=== PATIENT | female | born 1940 | race African-American/Black ===

== ENCOUNTER 2019-07-13 01:17 | Inpatient (IN) | payer MEDICARE, MEDICAID ==
[~2019-07-13] VITALS: Ht 157.5 cm; Wt 77.1 kg
[2019-07-13] VITALS (11 sets, daily range): BP systolic 100–150; BP diastolic 44–70
[2019-07-13] MEDS ORDERED: heparin 10,000 units/1 ML INJ IV ONE (01:35)
[2019-07-13] MEDS ORDERED: heparin 10,000 units/1 ML INJ IV PRN (01:35)
[2019-07-13] MEDS ORDERED: FURO-150 PO (01:50)
[2019-07-13] MEDS ORDERED: LISI-604 PO (01:50)
[2019-07-13] MEDS ORDERED: CLOP75TA35 PO (01:50)
[2019-07-13] MEDS ORDERED: ASPI-1265 PO (01:50)
[2019-07-13] MEDS ORDERED: GLIP10TA11 PO (01:50)
[2019-07-13] MEDS ORDERED: FAMO20TA8 PO (01:50)
[2019-07-13] MEDS ORDERED: GABA-532 PO (01:58)
[2019-07-13] MEDS ORDERED: METF500T PO (01:58)
[2019-07-13] MEDS ORDERED: POTA10TA19 PO (01:58)
[2019-07-13] MEDS ORDERED: ATOR10TA87 PO (01:58)
[2019-07-13] MEDS ORDERED: METO-384 PO (01:58)
[2019-07-13] MEDS: heparin 25,000 UNIT/250ml bag 250 ML IV SCH ×2 (02:04→08:50)
[2019-07-13] MEDS ORDERED: acetaminophen 325mg tablet PO PRN ×2 (02:20→14:00)
[2019-07-13] MEDS ORDERED: mag hydrox/Alum hydrox/simeth 30ml oral suspension PO PRN (02:20)
[2019-07-13] MEDS ORDERED: potassium Cl 20 mEq SR tablet PO PRN ×2 (02:20)
[2019-07-13] MEDS ORDERED: magnesium Cl slow-release 64mg tablet PO PRN (02:20)
[2019-07-13] MEDS ORDERED: magnesium 2GM in 50ml NS 50 ML IV PRN (02:20)
[2019-07-13] MEDS ORDERED: potassium CL 10mEq/100ml bag 100 ML IV PRN ×2 (02:20)
[2019-07-13] MEDS ORDERED: magnesium 4gm in 100ml NS 100 ML IV PRN (02:20)
[2019-07-13] MEDS ORDERED: ondansetron/PF 4mg/2ml inj IV PRN (02:20)
[2019-07-13] MEDS ORDERED: magnesium hydroxide 30ml (MOM) UD suspension PO PRN ×2 (02:20→14:00)
[2019-07-13] MEDS ORDERED: glucagon, human recombinant 1mg kit SUBCUT PRN (02:25)
[2019-07-13] MEDS ORDERED: famotidine 20mg tablet PO PRN (02:25)
[2019-07-13] MEDS ORDERED: dextrose 50%-water 50ml dispensing syringe IV PRN ×2 (02:25)
[2019-07-13] MEDS ORDERED: MESSAGE TO PHARMACY PO ONE (02:25)
[2019-07-13] MEDS ORDERED: dextrose ORAL solution 15 GM/59 ML bottle PO PRN ×2 (02:25)
[2019-07-13] MEDS: normal saline 1000ml 1,000 ML IV SCH ×2 (02:28→07:48)
[2019-07-13 02:31] LABS: BASOPHILS # (AUTO) 0.1 X10'3 (0-0.2); BASOPHILS % (AUTO) 1.1 % (0-1); EOSINOPHILS # (AUTO) 0.2 X10'3 (0-0.9); HEMATOCRIT 37.1 % (35.0-45.0); HEMOGLOBIN 12.2 g/dl (12.0-16.0); LYMPHOCYTES # (AUTO) 2.6 X10'3 (1.1-4.8); LYMPHOCYTES % (AUTO) 40.4 % (21-51); MEAN CORPUSCULAR HEMOGLOBIN 27.6 PG (27.0-31.0); MEAN CORPUSCULAR VOLUME 83.5 FL (78-98); MEAN PLATELET VOLUME 9.4 FL (7.4-10.4); MONOCYTES # (AUTO) 0.5 X10'3 (0-0.9); MONOCYTES % (AUTO) 8.2 % (2-12); NEUTROPHILS % (AUTO) 47.3 % (42-75); PLATELET COUNT 198 X10'3 (140-440); RED BLOOD COUNT 4.44 X10'6 (4.20-5.60); WHITE BLOOD COUNT 6.4 X10'3 (4.5-11.0)
[2019-07-13 02:47] LABS: ALANINE AMINOTRANSFERASE 24 U/L (12-78); ALBUMIN/GLOBULIN RATIO 1.1 (1.1-1.5); ALKALINE PHOSPHATASE 52 IU/L (46-116); ANION GAP 7 (8-16); ASPARTATE AMINO TRANSFERASE 24 U/L (10-37); BILIRUBIN,TOTAL 0.3 MG/DL (0.1-1.0); BLOOD UREA NITROGEN 14 MG/DL (7-18); BUN/CREATININE RATIO 17.9 (6.6-38.0); CALCIUM 9.8 MG/DL (8.5-10.1); CHLORIDE 105 MMOL/L (99-107); CREATININE 0.78 MG/DL (0.40-0.90); GLUCOSE 211 MG/DL (70-104); POTASSIUM 3.9 MMOL/L (3.5-5.1); SODIUM 139 MMOL/L (135-145); TOTAL CARBON DIOXIDE 26.9 MMOL/L (24-32); TOTAL PROTEIN 7.5 G/DL (6.4-8.2); eGFR 71 ML/MIN
[2019-07-13 02:57] LABS: PARTIAL THROMBOPLASTIN TIME 126 SECONDS (22-32)
--- NOTE | 2019-07-13 05:54 | NUR ---
DART: MRSA 2-RN- Skin
--- NOTE | 2019-07-13 06:29 | NUR ---
Problems reprioritized. Patient report given, questions answered & plan of care reviewed with SHAUNA Camara. Patient stable at shift change
[2019-07-13] MEDS: K and/or MAG REPLACEMENT MC SCH ×2 (08:00→18:41)
[2019-07-13] MEDS: aspirin 81mg tab.chew PO SCH ×2 (08:00→09:48)
[2019-07-13] MEDS ORDERED: lisinopril 5mg tablet PO SCH (08:00)
[2019-07-13] MEDS: atorvastatin 10mg tablet PO SCH ×2 (08:00→09:46)
[2019-07-13] MEDS: potassium chloride 10mEq ER tablet PO SCH ×2 (08:00→09:48)
[2019-07-13] MEDS: clopidogrel 75mg tablet PO SCH ×2 (08:00→09:46)
[2019-07-13] MEDS: metoprolol succinate 25mg (24-HOUR) SR. Tablet PO SCH (08:00)
[2019-07-13] MEDS: insulin Lispro (HumaLOG) vial - multi-dose SQ SCH ×3 (08:06→19:12)
--- NOTE | 2019-07-13 08:13 | NUR ---
Patient refused portion of am meds due to NPO
[2019-07-13 08:32] LABS: MAGNESIUM 1.7 MG/DL (1.5-2.4)
--- NOTE | 2019-07-13 09:50 | NUR ---
able to give aspirin and plavix per BATTERY TEST ENGINEER. K and lipitor given now that pt can have food.
[2019-07-13 09:56] LABS: CHOL/HDL RATIO 2.8 (0.00-4.99); CHOLESTEROL 123 MG/DL (0-200); HDL CHOLESTEROL 44 MG/DL (35-60); LDL CHOLESTEROL 60 MG/DL (50-100); TRIGLYCERIDES 111 MG/DL (20-135)
[2019-07-13] MEDS ORDERED: LIDOcaine/PRILOcaine 5gm cream TP ONE (10:15)
[2019-07-13] MEDS ORDERED: verapamil 2.5 mg/ml inj IV ONE (10:29)
[2019-07-13] MEDS ORDERED: fentaNYL/PF 50MCG/1 ML 2ML syringe ONE (10:29)
[2019-07-13] MEDS ORDERED: iohexol 350 MG/ML 50ML vial IV ONE (10:29)
[2019-07-13] MEDS ORDERED: nitroGLYCERIN-Tridil 50MG/D5W 250 ML IV ONE (10:29)
[2019-07-13] MEDS ORDERED: LIDOcaine 1% (10mg/ml)w/preservative injection 20ml MDV ONE (10:29)
[2019-07-13] MEDS ORDERED: iohexol 350MG/ML 100ml bottle IV ONE ×3 (10:29→12:14)
[2019-07-13] MEDS ORDERED: midazolam 2 mg/2 ml injection ONE (10:29)
[2019-07-13] MEDS ORDERED: heparin 1,000unit/ml 10ml vial 10 ML ONE (10:29)
[2019-07-13] MEDS ORDERED: atropine 0.1mg/ml 10ml syringe ONE (11:58)
[2019-07-13] MEDS ORDERED: clopidogrel 300mg tablet ONE (12:35)
--- NOTE | 2019-07-13 12:39 | NUR ---
Received report from SHAUNA Diane in labor conciliator. Patient had right radial approach cardiac cath. Patient has a VascBand in place with 15 cc of air. Patient continues to have Heparin running at 1000 units and will be d/c. Patient received 1 of Versed and 25 of Fentanyl. Patient will also receive Plavix 300 mg by semiconductor lab technician staff prior to coming back to the ACCE unit. Stent placed to the Mid Circumflex.
--- NOTE | 2019-07-13 12:55 | NUR ---
Patient arrived back from the mini lab operator. Patient is alert and oriented and in a stable condition. Noted the Vascular band to the right wrist, no drainage. Vitals stable . Will continue to monitor for duration of shift.
[2019-07-13] MEDS ORDERED: aspirin 81mg tab.chew PO ONE (13:55)
[2019-07-13] MEDS ORDERED: normal saline 1000ml 1,000 ML IV SCH (13:55)
[2019-07-13] MEDS ORDERED: proCHLORperazine 10 MG/2 ml inj IV PRN (14:00)
[2019-07-13] MEDS ORDERED: cyclobenzaprine 10mg tablet PO PRN (14:00)
[2019-07-13] MEDS ORDERED: OXAZEpam 15mg capsule PO PRN (14:00)
[2019-07-13] MEDS ORDERED: aspirin 325mg tablet PO ONE (14:00)
[2019-07-13] MEDS ORDERED: HYDROcodone/acetaminophen 10/325mg tab PO PRN ×2 (14:00)
--- NOTE | 2019-07-13 14:38 | NUR ---
DM Consult: A1C 10.9 Pt hx T2DM taking metformin and glipizide at home; may require insulin for better coverage per MD note. Pt admit w/ NSTEMI currently NPO for coronary angiogram today. Hx CAD and hyperlipidemia; lipid panel WNL this admit. Pt would benefit from written/verbal DM ed w/ RD contact information once stable prior to d/c. Addendum: 07/13/19 at [address] Amended: Links added.
--- NOTE | 2019-07-13 17:00 | NUR ---
Student documentation: I have reviewed and agree with interventions, assessments performed and documented by SONIA Diamond. Student Medication Administration: For this medication-pass time frame, medication were reviewed, dispensed, administered and documented per hospital policy by Etelvina Gunn RN.
--- NOTE | 2019-07-13 18:16 | NUR ---
Problems reprioritized. Patient report given, questions answered & plan of care reviewed with SHAUNA Song.
--- NOTE | 2019-07-13 18:44 | NUR ---
Patient in room MED 309. I have received report from Hoa VILLATORO and had the opportunity to ask questions and assume patient care.
[2019-07-13] MEDS: docusate sod 100mg capsule PO SCH (19:13)
[2019-07-13] MEDS ORDERED: furosemide 20MG tablet PO SCH (21:00)
[2019-07-13] MEDS ORDERED: atorvastatin 20mg tablet PO SCH (21:00)
[2019-07-13] MEDS ORDERED: gabapentin 300mg capsule PO SCH (21:00)
[2019-07-13] MEDS ORDERED: insulin glargine (Lantus) pen - multi-dose SQ SCH (21:00)
--- NOTE | 2019-07-13 21:55 | NUR ---
Attempted to call [facility] medical records for the patients PCI report, from her heart cath 2 years ago. The office is currently closed but is open Saturday-Saturday 8am-5pm. Medical record office numbe is [phone].
[2019-07-14 03:59] LABS: ALANINE AMINOTRANSFERASE 21 U/L (12-78); ALBUMIN 3.6 G/DL (3.4-5.0); ALBUMIN/GLOBULIN RATIO 1.1 (1.1-1.5); ALKALINE PHOSPHATASE 49 IU/L (46-116); ANION GAP 6 (8-16); ASPARTATE AMINO TRANSFERASE 20 U/L (10-37); BILIRUBIN,TOTAL 0.2 MG/DL (0.1-1.0); BLOOD UREA NITROGEN 16 MG/DL (7-18); BUN/CREATININE RATIO 16.7 (6.6-38.0); CALCIUM 9.3 MG/DL (8.5-10.1); CHLORIDE 107 MMOL/L (99-107); CREATININE 0.96 MG/DL (0.40-0.90); GLUCOSE 85 MG/DL (70-104); POTASSIUM 3.6 MMOL/L (3.5-5.1); SODIUM 142 MMOL/L (135-145); TOTAL CARBON DIOXIDE 28.7 MMOL/L (24-32); eGFR 68 ML/MIN
[2019-07-14 06:00] VITALS: BP 138/62
--- NOTE | 2019-07-14 06:28 | NUR ---
Problems reprioritized. Patient report given, questions answered & plan of care reviewed with Yamila VILLATORO.
--- NOTE | 2019-07-14 06:29 | NUR ---
Patient in room MED 309. I have received report from Duncan VILLATORO and had the opportunity to ask questions and assume patient care.
[2019-07-14 06:30] LABS: BASOPHILS # (AUTO) 0.1 X10'3 (0-0.2); EOSINOPHILS # (AUTO) 0.2 X10'3 (0-0.9); EOSINOPHILS % (AUTO) 2.6 % (0-6); HEMATOCRIT 37.8 % (35.0-45.0); HEMOGLOBIN 12.3 g/dl (12.0-16.0); LYMPHOCYTES # (AUTO) 1.4 X10'3 (1.1-4.8); LYMPHOCYTES % (AUTO) 21.7 % (21-51); MEAN CORPUSCULAR HEMOGLOBIN 27.8 PG (27.0-31.0); MEAN CORPUSCULAR HGB CONC 32.7 g/dL (33.0-36.5); MEAN PLATELET VOLUME 8.8 FL (7.4-10.4); MONOCYTES # (AUTO) 0.5 X10'3 (0-0.9); MONOCYTES % (AUTO) 7.3 % (2-12); NEUTROPHILS # (AUTO) 4.3 X10'3 (1.8-7.7); NEUTROPHILS % (AUTO) 67.4 % (42-75); PLATELET COUNT 200 X10'3 (140-440); RED BLOOD COUNT 4.44 X10'6 (4.20-5.60); RED CELL DISTRIBUTION WIDTH 14.7 % (11.5-14.5); WHITE BLOOD COUNT 6.4 X10'3 (4.5-11.0)
[2019-07-14 07:00] VITALS: BP 138/62
[2019-07-14] MEDS ORDERED: lisinopril 10 MG tablet PO SCH (08:00)
[2019-07-14] MEDS ORDERED: clopidogrel 75mg tablet PO SCH (08:00)
[2019-07-14] MEDS ORDERED: aspirin 81mg tablet.DR PO SCH (08:30)
[2019-07-14] MEDS ORDERED: LISI10TA4 PO (09:53)
[2019-07-14] MEDS: insulin Lispro (HumaLOG) vial - multi-dose SQ SCH (10:05)
[2019-07-14] MEDS: metoprolol succinate 25mg (24-HOUR) SR. Tablet PO SCH (10:26)
[2019-07-14] MEDS: potassium chloride 10mEq ER tablet PO SCH (10:26)
[2019-07-14 10:27] VITALS: BP_SYST 127
[2019-07-14] MEDS: docusate sod 100mg capsule PO SCH (10:27)
[2019-07-14] MEDS: clopidogrel 75mg tablet PO SCH (10:27)
--- NOTE | 2019-07-14 11:59 | NUR ---
Pt has remained stable. VSS. Her IV was removed and had no s/s of complications. All discharge instructions given to patient and she stated understanding. Prescriptions called to her pharmacy in [place], and faxed. The pt has a hard copy of prescriptions as well. Her daughter came to pick her up and then went via wheelchair to private vehicle.
--- NOTE | 2019-07-14 12:00 | NUR ---
Patients daughter did not want us to make a follow up appt for her mom she stated she would call when she got home.
== END 2019-07-14 12:00 | disposition home or self-care (01) | DRG 246 ==
LOC: ER 01:18 → ED HOLD 02:20 → UNDOADMIN 02:22 → MED 3N 03:25 → ED HOLD 03:25
PROVIDERS: ADMIT Internal Medicine; ATTEND Family Medicine
PROC: 027035Z Dilation of Coronary Artery, One Artery with Two Drug-eluting Intraluminal Devices, Percutaneous Approach (ICD-10-PCS; principal; 2019-07-13)
PROC: 4A023N7 Measurement of Cardiac Sampling and Pressure, Left Heart, Percutaneous Approach (ICD-10-PCS; 2019-07-13)
PROC: B2111ZZ Fluoroscopy of Multiple Coronary Arteries using Low Osmolar Contrast (ICD-10-PCS; 2019-07-13)
PROC: B2151ZZ Fluoroscopy of Left Heart using Low Osmolar Contrast (ICD-10-PCS; 2019-07-13)
DX: T82.855A Stenosis of coronary artery stent, initial encounter (principal); I21.4 Non-ST elevation (NSTEMI) myocardial infarction; I25.10 Atherosclerotic heart disease of native coronary artery without angina pectoris; K80.20 Calculus of gallbladder without cholecystitis without obstruction; E11.65 Type 2 diabetes mellitus with hyperglycemia; E78.00 Pure hypercholesterolemia, unspecified; E78.5 Hyperlipidemia, unspecified; I10 Essential (primary) hypertension; E11.42 Type 2 diabetes mellitus with diabetic polyneuropathy; Z79.02 Long term (current) use of antithrombotics/antiplatelets; Z79.84 Long term (current) use of oral hypoglycemic drugs; Z83.3 Family history of diabetes mellitus; I25.2 Old myocardial infarction; Z87.891 Personal history of nicotine dependence; Z95.1 Presence of aortocoronary bypass graft; Z95.5 Presence of coronary angioplasty implant and graft; Z88.0 Allergy status to penicillin; Z79.899 Other long term (current) drug therapy; Z79.82 Long term (current) use of aspirin; Z90.49 Acquired absence of other specified parts of digestive tract; Z79.4 Long term (current) use of insulin; Y71.2 Prosthetic and other implants, materials and accessory cardiovascular devices associated with adverse incidents; Y92.9 Unspecified place or not applicable
CPT/HCPCS: 93306; 93458; C9600; 36415; 80053; 80061; 82948; 83036; 83735; 84484; 85025; 85347; 85730; 87081; 93005; 99152; 99153; A4620; A5120; A6258; C1725; C1751; C1769; C1874; C1894; G0378; J0461; J1644; J1815; J2001; J2250; J3010; J3490; J7030; Q9967